=== PATIENT | male | born 1965 | race African-American/Black ===

== ENCOUNTER → 2016-11-20 | Outpatient (REF) | payer OTHER ==
[2016-11-20 12:28] LABS: ALBUMIN/GLOBULIN RATIO 1.18 (1.00-1.93); ALKALINE PHOSPHATASE 101 U/L (45-117); ALT/SGPT 44 U/L (12-78); ANION GAP 12 MEQ/L (8-16); AST/SGOT 44 U/L (15-37); BILIRUBIN,TOTAL 0.6 MG/DL (0.2-1.0); BLOOD UREA NITROGEN 10 MG/DL (7-18); CARBON DIOXIDE LEVEL 23 MEQ/L (21-32); CHLORIDE LEVEL 108 MEQ/L (98-107); CHOLESTEROL LEVEL 235 MG/DL (<200); CREATININE FOR GFR 0.71 MG/DL (0.70-1.30); GLOMERULAR FILTRATION RATE > 60.0 (>60); GLUCOSE, FASTING 74 MG/DL (70-105); SODIUM LEVEL 143 MEQ/L (136-145); TOTAL PROTEIN 7.4 GM/DL (6.4-8.2); TRIGLYCERIDES LEVEL 79 MG/DL (<150)
== END ==
LOC: M LABDRAW1 11:26
PROVIDERS: ATTEND Internal Medicine Infectious Disease
DX: B20 Human immunodeficiency virus [HIV] disease (principal); E55.9 Vitamin D deficiency, unspecified; E78.2 Mixed hyperlipidemia

== ENCOUNTER → 2016-12-22 | Outpatient (CLI) | payer OTHER ==
--- NOTE | 2016-12-22 12:02 | REP ---
Prostate sonography: History: Elevated PSA. Sonographic findings: Trans rectal prostate sonography demonstrates unremarkable seminal vesicles. Prostate gland is heterogeneously enlarged with calcifications and cystic changes noted. Glandular dimensions are measured at 4.1 x 2.2 x 4.4 cm with a calculated glandular volume of 21.1 ml. Transrectal sonographic guidance provided to Dr. Romano who performed trans rectal ultrasound guided needle biopsy procedure . Signed by Bo Burks MD 12/22/2016 11:53 A
== END ==
LOC: M SMT PRO 08:44
PROVIDERS: ATTEND Urology
DX: C61 Malignant neoplasm of prostate (principal); N41.8 Other inflammatory diseases of prostate
CPT/HCPCS: 55700; 76872; 76942; G0416

== ENCOUNTER → 2017-02-03 | Outpatient (REF) | payer OTHER ==
[2017-02-03 13:58] LABS: MEAN CORPUSCULAR HEMOGLOBIN 30.1 pg (27.0-33.0); MEAN CORPUSCULAR HGB CONC 34.2 g/dl (32.0-36.5); MEAN CORPUSCULAR VOLUME 87.9 fl (80.0-96.0); RED CELL DISTRIBUTION WIDTH 13.8 % (11.5-14.5); WHITE BLOOD COUNT 3.1 K/mm3 (4.0-10.0)
[2017-02-03 14:06] LABS: INR 0.93
[2017-02-03 14:30] LABS: ALBUMIN 4.2 GM/DL (3.2-5.2); ALBUMIN/GLOBULIN RATIO 1.24 (1.00-1.93); ALKALINE PHOSPHATASE 77 U/L (45-117); ALT/SGPT 34 U/L (12-78); ANION GAP 9 MEQ/L (8-16); AST/SGOT 31 U/L (15-37); BILIRUBIN,TOTAL 0.9 MG/DL (0.2-1.0); BLOOD UREA NITROGEN 10 MG/DL (7-18); CARBON DIOXIDE LEVEL 25 MEQ/L (21-32); CHLORIDE LEVEL 106 MEQ/L (98-107); CREATININE FOR GFR 0.74 MG/DL (0.70-1.30); GLOMERULAR FILTRATION RATE > 60.0 (>60); GLUCOSE, FASTING 77 MG/DL (70-105); POTASSIUM SERUM 3.8 MEQ/L (3.5-5.1); SODIUM LEVEL 140 MEQ/L (136-145); TOTAL PROTEIN 7.6 GM/DL (6.4-8.2)
== END ==
LOC: M LABDRAWP 12:45
PROVIDERS: ATTEND Urology
DX: Z01.818 Encounter for other preprocedural examination (principal); C61 Malignant neoplasm of prostate

== ENCOUNTER 2017-02-23 14:30 | Inpatient (IN) | payer OTHER ==
[~2017-02-23] VITALS: Ht 167.6 cm; Wt 61.2 kg
[2017-02-23] MEDS ORDERED: GENV1TAB PO (15:00)
[2017-02-23] MEDS ORDERED: LIPI20TA PO (15:00)
[2017-02-23] MEDS ORDERED: IBUP60TA PO (15:00)
[2017-02-23] MEDS ORDERED: CIPR500T19 PO (15:00)
[2017-02-23] MEDS ORDERED: ACYC400T PO (15:00)
[2017-02-23] MEDS ORDERED: ATEN100T PO (15:00)
[2017-02-23] MEDS ORDERED: THERTAB12 PO (15:00)
[2017-02-23] MEDS ORDERED: ATRIPLA PO (15:00)
[2017-02-23] MEDS ORDERED: NORV5TAB PO (15:00)
[2017-03-09] VITALS (8 sets, daily range): BP systolic 118–141; BP diastolic 72–89
[2017-03-09] MEDS ORDERED: LR 1,000 ML IV ONE (06:00)
[2017-03-09] MEDS ORDERED: LIDOCAINE 1% SDV INJ 30 ML VIAL As Ordered ONE (07:15)
[2017-03-09] MEDS ORDERED: BUPIVACAINE HCL 0.25% 30 ML VIAL As Ordered ONE (07:15)
[2017-03-09] MEDS ORDERED: ATENOLOL 50 MG TAB As Ordered ONE (07:16)
[2017-03-09] MEDS: HEPARIN SOD (PORCINE) 5000 UNITS/ML VIAL SC SCH ×3 (07:41→20:38)
[2017-03-09] MEDS ORDERED: HEPARIN SOD (PORCINE) 5000 UNITS/ML VIAL As Ordered ONE (07:59)
[2017-03-09] MEDS ORDERED: MIDAZOLAM INJ 2 MG/2 ML VIAL (J2250) As Ordered ONE (07:59)
[2017-03-09] MEDS ORDERED: fentaNYL 250 MCG/5 ML INJECTION (J3010) As Ordered ONE (07:59)
[2017-03-09] MEDS ORDERED: ACETAMINOPHEN TAB 650MG DOSE (2X325MG) PO PRN (08:00)
[2017-03-09] MEDS ORDERED: MORPHINE 2 MG/ML 1ML SYRINGE IV PRN (08:00)
[2017-03-09] MEDS ORDERED: ONDANSETRON 4MG/2ML VIAL (J2405) IV PRN ×2 (08:00→14:30)
[2017-03-09] MEDS ORDERED: PHENYLephrine HCL 500 MCG/5 ML (100MCG/ML) SYRINGE (J2370) As Ordered ONE ×2 (08:10→12:13)
[2017-03-09] MEDS ORDERED: METOCLOPRAMIDE INJ 10MG/2ML VIAL (J2765) As Ordered ONE (08:13)
[2017-03-09] MEDS ORDERED: LIDOCAINE 2% INJ 100 MG/5 ML SDV (FOR ANES.) As Ordered ONE (08:13)
[2017-03-09] MEDS ORDERED: ONDANSETRON 4MG/2ML VIAL (J2405) As Ordered ONE (08:13)
[2017-03-09] MEDS ORDERED: GLYCOPYRROLATE INJ 0.2 MG/ML 2 ML VIAL As Ordered ONE ×2 (08:13→08:14)
[2017-03-09] MEDS ORDERED: PROPOFOL 200 MG/20 ML VIAL As Ordered ONE (08:13)
[2017-03-09] MEDS ORDERED: NEOSTIGMINE 1MG/ML 5 ML SYRINGE (J2710) As Ordered ONE (08:14)
[2017-03-09] MEDS ORDERED: ROCURONIUM BROMIDE 50 MG/5 ML VIAL As Ordered ONE ×2 (08:14→11:00)
[2017-03-09] MEDS ORDERED: DESFLURANE 240 ML INHALANT As Ordered ONE (08:16)
[2017-03-09] MEDS ORDERED: HYDROmorphone HCL 2 MG/ML 1ML VIAL (J1170) As Ordered ONE (08:26)
[2017-03-09] MEDS: DOCUSATE SODIUM 100 MG CAP PO SCH ×2 (09:00→20:38)
[2017-03-09] MEDS ORDERED: ATENOLOL 50 MG TAB PO ONE (09:00)
[2017-03-09 13:31] LABS: MEAN CORPUSCULAR HEMOGLOBIN 30.4 pg (27.0-33.0); MEAN CORPUSCULAR HGB CONC 33.4 g/dl (32.0-36.5); MEAN CORPUSCULAR VOLUME 91.1 fl (80.0-96.0); RED CELL DISTRIBUTION WIDTH 13.5 % (11.5-14.5); WHITE BLOOD COUNT 10.3 K/mm3 (4.0-10.0)
--- NOTE | 2017-03-09 13:50 | ROOPDOC ---
[facility] Report Of Operation Report of Operation DATE OF PROCEDURE: 03/09/2017 PREPROCEDURE DIAGNOSIS: Prostate cancer. POSTPROCEDURE DIAGNOSIS: Prostate cancer. PROCEDURE: Robotic-assisted laparoscopic radical prostatectomy with bilateral pelvic lymph node dissection SURGEON: Helene Milton MD [place] MAN: Andree Leal NP ANESTHESIA: General. OPERATIVE INDICATIONS: This is a 51-year-old male who was diagnosed with clinical stage T1c Jaci 3+4 prostate cancer. After a discussion of the different options for treatment, he elected to undergo the above listed procedure. DESCRIPTION OF PROCEDURE: The patient was brought to the operating room where general anesthesia was induced. Prophylactic antibiotics were infused. He was then placed in the dorsal lithotomy position, and prepped and draped in the usual sterile fashion. Next, a Valles catheter was inserted into the bladder, and the balloon was filled with 10 mL of sterile water. We then made a midline incision above the umbilicus for 12 mm port. A Veress needle was utilized to achieve pneumoperitoneum. Next, a 12 mm port was inserted through the incision and subsequently the camera was inserted. There were no injuries from the Veress needle or initial trocar placement. The remaining ports were placed in the usual fashion under direct vision in a W configuration. There were three 8 mm robotic ports, as well as another 12 mm assistant professor of philosophy port. Once all the ports were placed, the robot was docked. After the robot was docked, we then proceeded to release any adhesions to the sigmoid colon and the abdominal wall. Once that was done, the bladder was dropped and the fat overlying the prostate was cleared using electrocautery. The superficial dorsal vein was controlled with electrocautery. The endopelvic fascia was opened on both sides and the dorsal venous complex was cleared. Next, a #0 Vicryl [id number] stitch was placed around the dorsal venous complex. Once that was done, the bladder was opened. We then began dissecting the bladder neck away from the prostate. I continued to dissect the bladder away from the prostate and then the prostate was lifted up. Both vasa differentia were identified in the midline. They were both carefully dissected and then ligated with Weck clips and then transected. Both seminal vesicles were then also dissected until the entire seminal vesicle on each side was lifted up. At this point I carefully dissected off the neurovascular bundle on the left side with cold scissors. I did not perform a nerve-sparing procedure on the right side as all of the patient's cancer was on the right based on his biopsy. Once the left neurovascular bundle was cleared, bilateral prostatic pedicles were carefully ligated using a Harmonic scalpel. Bilateral pedicles were carried towards the apex. After taking care of the pedicles and mobilizing the rectum off the prostate below, the prostate was only connected by the urethra. At this point, the dorsal vein was transected with electrocautery. The urethra was then opened and the catheter was withdrawn and the posterior urethra was transected, thus freeing the prostate. At this point , we checked for hemostasis and it did appear very good. Next, I performed bilateral pelvic lymph node dissection. This was done in standard fashion. The limits of the dissection were the external iliac veins proximally, the obturator nerve distally, the pelvic sidewall laterally, and the bladder medially. All lymphatic tissue within these borders was removed. I performed the same procedure on both the right and the left sides. Hemostasis was then obtained with a combination of monopolar, electrocautery and Weck clips. Lymphatic packets were then placed in separate Endo Catch bags for future retrieval. Once hemostasis was confirmed, I then moved on to the vesicourethral anastomosis. This was performed with a Quill stitch in a running fashion. Once this was done, the final #20-Congolese Valles catheter was placed. Once the final Valles was placed, the balloon was filled with 15 mL of sterile water. Upon completion of the vesicourethral anastomosis, it was tested by filling the bladder with 120 mL of sterile water. There was no leak, indicating a watertight closure. At this point, the prostate and seminal vesicles were placed in an Endo Catch bag for future retrieval. The robot was then undocked. A Vianey fascial closure device was utilized to place a #0 Vicryl suture through the fascia of the 12 mm assistant professor of philosophy port. At this point, a Donovan- Dutton (SARKIS) drain was brought in through the left robotic port skin site and the drain was positioned anterior to the bladder. The drain was secured to the skin with #3-0 Ethilon suture. Next, all the remaining ports were removed and there did not appear to be any bleeding from any of the port sites. The prostate was then extracted from the 12 mm camera port site after the skin and fascia were extended. The fascia in this area was then closed with a running #0 Vicryl stitch. The previously placed #0 Vicryl free ties through the assistant professor of philosophy port were then tied down and all incisions were irrigated. Lastly, all of the incisions were closed with running subcuticular #4-0 Monocryl sutures. Local anesthesia was applied. Dermabond was then applied to the incisions. This marked the conclusion of the procedure. The patient was then taken out of the dorsal lithotomy position, awakened from anesthesia and transported to the recovery room in stable condition. ESTIMATED BLOOD LOSS: 75 mL. COMPLICATIONS: None. SPECIMENS: Prostate, Right Pelvic Lymph Nodes, Left Pelvic Lymph Nodes. PLAN: The patient will be admitted to the hospital postoperatively, and he will likely be discharged home within the next 1-2 days. His catheter will be kept in place for at 7-10 days and then removed. HELENE MILTON MD March 09, 2017 13:50
[2017-03-09 14:06] LABS: ANION GAP 8 MEQ/L (8-16); BLOOD UREA NITROGEN 12 MG/DL (7-18); CALCIUM LEVEL 8.2 MG/DL (8.5-10.1); CARBON DIOXIDE LEVEL 24 MEQ/L (21-32); CHLORIDE LEVEL 108 MEQ/L (98-107); CREATININE FOR GFR 0.88 MG/DL (0.70-1.30); GLOMERULAR FILTRATION RATE > 60.0 (>60); GLUCOSE, FASTING 103 MG/DL (70-105); POTASSIUM SERUM 4.4 MEQ/L (3.5-5.1); SODIUM LEVEL 140 MEQ/L (136-145)
[2017-03-09] MEDS ORDERED: fentaNYL 100 MCG/2 ML INJECTION (J3010) IV PRN (14:30)
[2017-03-09] MEDS ORDERED: PERCOCET 5MG/325MG TAB PO PRN (14:30)
[2017-03-09] MEDS ORDERED: LR 1,000 ML IV SCH (14:30)
[2017-03-09] MEDS ORDERED: HYDROmorphone HCL 1 MG/ML SYRINGE (J1170) IV PRN (14:30)
[2017-03-09] MEDS: ceFAZolin SOD 1 GM in D5W MINI-BAG PLUS 50 ML IV SCH ×2 (15:19→23:37)
[2017-03-09] MEDS: NS 1,000 ML IV SCH ×3 (15:19→23:37)
[2017-03-09] MEDS: PERCOCET 5MG/325MG TAB PO PRN (20:52)
[2017-03-09] MEDS ORDERED: ATRIPLA TAB PO SCH (21:00)
[2017-03-10] MEDS: PERCOCET 5MG/325MG TAB PO PRN ×2 (01:00→05:34)
[2017-03-10 04:00] VITALS: BP 128/81
[2017-03-10] MEDS: HEPARIN SOD (PORCINE) 5000 UNITS/ML VIAL SC SCH (05:34)
[2017-03-10] MEDS ORDERED: CIPROFLOXACIN 500 MG TAB PO SCH (06:00)
[2017-03-10 06:51] LABS: MEAN CORPUSCULAR HEMOGLOBIN 31.3 pg (27.0-33.0); MEAN CORPUSCULAR HGB CONC 34.7 g/dl (32.0-36.5); MEAN CORPUSCULAR VOLUME 90.1 fl (80.0-96.0); RED CELL DISTRIBUTION WIDTH 13.3 % (11.5-14.5); WHITE BLOOD COUNT 6.7 K/mm3 (4.0-10.0)
[2017-03-10 07:09] LABS: ANION GAP 5 MEQ/L (8-16); BLOOD UREA NITROGEN 7 MG/DL (7-18); CALCIUM LEVEL 7.3 MG/DL (8.5-10.1); CARBON DIOXIDE LEVEL 26 MEQ/L (21-32); CHLORIDE LEVEL 112 MEQ/L (98-107); CREATININE FOR GFR 0.76 MG/DL (0.70-1.30); GLOMERULAR FILTRATION RATE > 60.0 (>60); GLUCOSE, FASTING 95 MG/DL (70-105); POTASSIUM SERUM 3.6 MEQ/L (3.5-5.1); SODIUM LEVEL 143 MEQ/L (136-145)
[2017-03-10] MEDS ORDERED: PERCOCET 5MG/325MG TAB PO PRN ×2 (07:45)
[2017-03-10 08:00] VITALS: BP 138/69
[2017-03-10] MEDS ORDERED: MORPHINE 2 MG/ML 1ML SYRINGE IV PRN (08:00)
--- NOTE | 2017-03-10 08:19 | IPNPDOC ---
Assessment/Plan Date Seen The patient was seen on 03/10/17. Patient Summary This is a 51 y/o M POD1 s/p robotic-assisted laparoscopic radical prostatectomy w/ bilateral pelvic lymph node dissection. He is doing well this am. Plan/VTE VTE Prophylaxis Ordered?: Yes VTE Exclusion Mechanical Proph: N/A:VTE Prophy Ordered VTE Exclusion Pharmacological: N/A:VTE Prophy Ordered Plan/Urinary Catheter Urinary Catheter: Other Catheter: (keep catheter in place for healing of vesicourethral anastomosis) Plan - percocet prn pain w/ morphing for breakthrough pain - d/c IVF - continue home meds - SCDs, SQH for DVT prophylaxis - ambulate - incentive spirometry - cipro daily while catheter is in - strict I/Os - advance diet as tolerated - likely discharge home later today w/ catheter in place (will d/c SARKIS drain prior to discharge) Subjective Review oF Systems Chief Complaint The patient is a 51-year-old male admitted with a reason for visit of Prostate Cancer. Events since Last Encounter No acute events o/n. Patient notes good pain control. No n/v. No f/c/ns. Objective Physical Examination General Exam: Alert, Cooperative, No Acute Distress ENT EXAM: Atraumatic ABDOMEN EXAM: Soft, Tenderness (appropriately tender), Other (incisions clean/ dry/intact; SARKIS draining serosanguinous output) Skin Exam: Nl turgor and temperature Neuro Exam: Normal Speech Psych Exam: Mental status NL, Mood NL Other physical findings catheter draining clear urine Vital Signs/I&O Vital Signs Date Time Temp Pulse Resp B/P (MAP) Pulse Ox O2 Delivery O2 Flow Rate FiO2 03/10/17 06:22 16 03/10/17 04:00 Room Air 03/10/17 04:00 100.1 71 128/81 (97) 97 03/09/17 13:26 2 I&O- Last 24 Hours up to 6 AM 03/10/17 05:59 Intake Total 6135 ml Output Total 3095 ml Balance 3040 ml Laboratory Data Labs 24H Laboratory Tests 2 03/09/17 13:18: Anion Gap 8, Glomerular Filtration Rate > 60.0, Blood Urea Nitrogen 12, Creatinine 0.88, Sodium Level 140, Potassium Level 4.4, Chloride Level 108H, Carbon Dioxide Level 24, Calcium Level 8.2L 03/09/17 15:45: 03/10/17 06:27: Anion Gap 5L, Glomerular Filtration Rate > 60.0, Blood Urea Nitrogen 7, Creatinine 0.76, Sodium Level 143, Potassium Level 3.6, Chloride Level 112H, Carbon Dioxide Level 26, Calcium Level 7.3L CBC/BMP Laboratory Tests 03/09/17 13:18 Red Blood Count 4.65, Mean Corpuscular Volume 91.1, Mean Corpuscular Hemoglobin 30.4, Mean Corpuscular Hemoglobin Concent 33.4, Red Cell Distribution Width 13.5 , Calcium Level 8.2 L 03/10/17 06:27 Red Blood Count 3.99 L, Mean Corpuscular Volume 90.1, Mean Corpuscular Hemoglobin 31.3, Mean Corpuscular Hemoglobin Concent 34.7, Red Cell Distribution Width 13.3, Calcium Level 7.3 L HELENE MILTON MD March 10, 2017 08:19
[2017-03-10] MEDS ORDERED: ACYCLOVIR 200 MG CAPSULE PO SCH (09:00)
[2017-03-10] MEDS ORDERED: ATENOLOL 50 MG TAB PO SCH (09:00)
[2017-03-10] MEDS ORDERED: amLODIPine 5 MG TAB PO SCH (09:00)
[2017-03-10] MEDS: DOCUSATE SODIUM 100 MG CAP PO SCH (09:19)
[2017-03-10 09:21] VITALS: BP 138/69
[2017-03-10 12:00] VITALS: BP 116/75
[2017-03-10] MEDS ORDERED: ACET650T2 PO (13:22)
[2017-03-10] MEDS ORDERED: CIPR500T89 PO (13:22)
[2017-03-10] MEDS ORDERED: OXYC1TAB23 PO (13:22)
[2017-03-10] MEDS ORDERED: COLA100C3 PO (13:22)
--- NOTE | 2017-03-11 06:16 | DSES ---
DATE OF ADMISSION: 03/09/2017 DATE OF DISCHARGE:03/10/2017 ADMISSION DIAGNOSIS: Prostate cancer. DISCHARGE DIAGNOSIS: Prostate cancer. ADMISSION PHYSICIAN: Arnie Romano MD. DISCHARGE PHYSICIAN: Arnie Romano MD PROCEDURES PERFORMED: Robotic-assisted laparoscopic radical prostatectomy, bilateral pelvic lymph node dissection on . HISTORY OF PRESENT ILLNESS: This is a 51-year-old male was recently found to have prostate cancer. Options for treatment were discussed and he elected to undergo the above procedure. He was admitted to the hospital postoperatively. HOSPITAL COURSE: The patient was admitted to the hospital after undergoing the above listed procedure. His postoperative course was unremarkable. On postoperative day one his labs were within normal limits and he is making excellent urine output. His pain was very well controlled and he ambulated with no difficulty. He was tolerating a regular diet. Output from his Donovan-Dutton (SARKIS) drain was minimal and therefore the drain was removed. Since he was doing so well on postoperative day one he was deemed ready for discharge. He was therefore discharged home on postoperative day one in good condition with his catheter in place. He will followup in the clinic next week for catheter removal. I will discuss his pathology at a subsequent visit in our office. KELSIE
== END 2017-03-10 15:35 | disposition home or self-care (01) | DRG 707 ==
LOC: M OR 03-09 06:12 → M MS5PR 03-09 14:10 → M PED 03-09 21:35
PROVIDERS: ADMIT Urology; ATTEND Urology
PROC: 07TC4ZZ Resection of Pelvis Lymphatic, Percutaneous Endoscopic Approach (ICD-10-PCS; 2017-03-09)
PROC: 8E0W4CZ Robotic Assisted Procedure of Trunk Region, Percutaneous Endoscopic Approach (ICD-10-PCS; 2017-03-09)
PROC: 0VT04ZZ Resection of Prostate, Percutaneous Endoscopic Approach (ICD-10-PCS; principal; 2017-03-09 07:30)
DX: C61 Malignant neoplasm of prostate (principal); B20 Human immunodeficiency virus [HIV] disease; I10 Essential (primary) hypertension; Z79.899 Other long term (current) drug therapy; E78.2 Mixed hyperlipidemia; M54.5 Low back pain

== ENCOUNTER → 2017-05-07 | Outpatient (CLI) | payer OTHER ==
[~2017-05-07] MED LIST: ACET650T3 PO; ACYC400T PO; ATEN100T PO; ATRIPLA PO; CIPR-249 PO; CIPR500T19 PO; COLA100C5 PO; GENV1TAB PO; IBUP1TAB6 PO; LIPI20TA PO; NORV5TAB PO; OXYC1TAB23 PO; THERTAB12 PO
== END ==
LOC: M SMT 09:23
PROVIDERS: ATTEND Urology
DX: C61 Malignant neoplasm of prostate (principal)

== ENCOUNTER → 2017-11-25 | Outpatient (REF) | payer OTHER ==
[2017-11-25 14:58] LABS: APPEARANCE, URINE CLEAR (CLEAR); BACTERIA, URINE AUTO NEGATIVE (NEGATIVE); BILIRUBIN, URINE AUTO NEGATIVE (NEGATIVE); BLOOD, URINE BLOOD NEGATIVE (NEGATIVE); COLOR, URINE YELLOW (YELLOW); GLUCOSE, URINE (UA) AUTO NEGATIVE (NEGATIVE); KETONE, URINE AUTO NEGATIVE (NEGATIVE); LEUKOCYTE ESTERASE, URINE AUTO NEGATIVE (NEGATIVE); MUCUS, URINE SMALL (NEGATIVE); NITRITE, URINE AUTO NEGATIVE (NEGATIVE); PROTEIN, URINE AUTO NEGATIVE (NEGATIVE); RBC, URINE AUTO 0 /HPF (0-3); SPECIFIC GRAVITY URINE AUTO 1.012 (1.002-1.035); SQUAMOUS EPITHELIAL CELL UR AU 0 /HPF (0-6); UROBILINOGEN, URINE AUTO 0.2 mg/dL (0.0-2.0); WBC, URINE AUTO 0 /HPF (0-3)
[2017-11-25 15:43] LABS: PROSTATIC SPECIFIC AG MONITOR < 0.01 NG/ML (< 4.0)
[2017-11-25 15:54] LABS: ALBUMIN 4.1 GM/DL (3.2-5.2); ALBUMIN/GLOBULIN RATIO 1.14 (1.00-1.93); ALKALINE PHOSPHATASE 72 U/L (45-117); ALT/SGPT 24 U/L (12-78); ANION GAP 9 MEQ/L (8-16); AST/SGOT 25 U/L (7-37); BILIRUBIN,TOTAL 0.6 MG/DL (0.2-1.0); BLOOD UREA NITROGEN 9 MG/DL (7-18); CALCIUM LEVEL 9.2 MG/DL (8.5-10.1); CARBON DIOXIDE LEVEL 28 MEQ/L (21-32); CHLORIDE LEVEL 106 MEQ/L (98-107); CHOLESTEROL LEVEL 261 MG/DL (<200); CHOLESTEROL RISK RATIO 2.394 (<5); CREATININE FOR GFR 0.93 MG/DL (0.70-1.30); GLOMERULAR FILTRATION RATE > 60.0 (>56); GLUCOSE, FASTING 82 MG/DL (70-100); HDL CHOLESTEROL 109 MG/DL (>40); LDL CHOLESTEROL 134.8 MG/DL (<100); NON-HDL-C 152 MG/DL; SODIUM LEVEL 143 MEQ/L (136-145); TOTAL PROTEIN 7.7 GM/DL (6.4-8.2); TRIGLYCERIDES LEVEL 86 MG/DL (<150)
[2017-11-25 16:24] LABS: CHLAMYDIA DNA AMPLIFICATION NEGATIVE (NEGATIVE); GC DNA AMPLIFICATION NEGATIVE (NEGATIVE)
[2017-11-27 00:08] LABS: % CD8 Pos Lymph 32.7 % (12.0-35.5); %CD4 Pos Lymphs 31.6 % (30.8-58.5); ABS Lymphs 0.7 x10E3/uL (0.7-3.1); ABS Monocytes 0.2 x10E3/uL (0.1-0.9); ABS Neutophils 1.6 x10E3/uL (1.4-7.0); Abs CD4 Helper 221 /uL (359-1519); Abs CD8 Suppres 229 /uL (109-897); CD4/CD8 Ratio 0.97 (0.92-3.72); Eosinophils 1 % (Not Estab.); HCT 45.3 % (37.5-51.0); HGB 15.4 g/dL (13.0-17.7); Immature Grans 0 % (Not Estab.); Lymphocytes 27 % (Not Estab.); MCH 29.7 pg (26.6-33.0); MCV 87 fL (79-97); Monocytes 9 % (Not Estab.); Neutrophils 62 % (Not Estab.); Platelets 274 x10E3/uL (150-379); RBC 5.19 x10E6/uL (4.14-5.80); RDW 14.5 % (12.3-15.4); WBC 2.6 x10E3/uL (3.4-10.8)
[2017-11-27 15:10] LABS: QUANTIFERON GOLD TB Negative (Negative); TB Test (QFT) Antigen 0.02 IU/mL (.); TB Test (QFT) Antigen Minus Ni <0.01 IU/mL (.); TB Test (QFT) Nil 0.03 IU/mL (.)
[2017-11-29 14:12] LABS: HIV-1 RNA PCR QUANT 2 LC550285 <20 copies/mL (.)
== END ==
LOC: M SFHCPLAZ 09:00
DX: B20 Human immunodeficiency virus [HIV] disease (principal); E78.2 Mixed hyperlipidemia
CPT/HCPCS: 84153

== ENCOUNTER → 2018-11-15 | Outpatient (REF) | payer OTHER ==
[2018-11-15 13:33] LABS: APPEARANCE, URINE CLEAR (CLEAR); BACTERIA, URINE AUTO NEGATIVE (NEGATIVE); BILIRUBIN, URINE AUTO NEGATIVE (NEGATIVE); BLOOD, URINE BLOOD NEGATIVE (NEGATIVE); COLOR, URINE YELLOW (YELLOW); GLUCOSE, URINE (UA) AUTO NEGATIVE (NEGATIVE); KETONE, URINE AUTO NEGATIVE (NEGATIVE); LEUKOCYTE ESTERASE, URINE AUTO NEGATIVE (NEGATIVE); MUCUS, URINE SMALL (NEGATIVE); NITRITE, URINE AUTO NEGATIVE (NEGATIVE); PROTEIN, URINE AUTO 1+ mg/dL (NEGATIVE); RBC, URINE AUTO 1 /HPF (0-3); SPECIFIC GRAVITY URINE AUTO 1.018 (1.002-1.035); SQUAMOUS EPITHELIAL CELL UR AU 0 /HPF (0-6); UROBILINOGEN, URINE AUTO 0.2 mg/dL (0.0-2.0); WBC, URINE AUTO 0 /HPF (0-3)
[2018-11-15 13:41] LABS: ALBUMIN 4.5 GM/DL (3.2-5.2); ALT/SGPT 28 U/L (12-78); BLOOD UREA NITROGEN 13 MG/DL (7-18); CALCIUM LEVEL 8.9 MG/DL (8.5-10.1); CARBON DIOXIDE LEVEL 26 MEQ/L (21-32); CHLORIDE LEVEL 105 MEQ/L (98-107); CHOLESTEROL LEVEL 269 MG/DL (<200); CHOLESTEROL RISK RATIO 2.744 (<5); CREATININE FOR GFR 0.94 MG/DL (0.70-1.30); GLOMERULAR FILTRATION RATE > 60.0 (>56); GLUCOSE, FASTING 84 MG/DL (70-100); HDL CHOLESTEROL 98 MG/DL (>40); LDL CHOLESTEROL 131 MG/DL (<100); NON-HDL-C 171 MG/DL; PROSTATIC SPECIFIC AG MONITOR < 0.01 NG/ML (< 4.00); SODIUM LEVEL 141 MEQ/L (136-145); TOTAL PROTEIN 8.3 GM/DL (6.4-8.2); TRIGLYCERIDES LEVEL 199 MG/DL (<150)
[2018-11-15 13:44] LABS: TOTAL 25(OH) VITAMIN D 20.8 NG/ML (30.0-100.0)
[2018-11-15 15:27] LABS: CHLAMYDIA DNA AMPLIFICATION NEGATIVE (NEGATIVE); GC DNA AMPLIFICATION NEGATIVE (NEGATIVE)
[2018-11-17 14:44] LABS: % CD8 Pos Lymph 35.4 % (12.0-35.5); %CD4 Pos Lymphs 24.5 % (30.8-58.5); ABS Lymphs 1.2 x10E3/uL (0.7-3.1); ABS Monocytes 0.3 x10E3/uL (0.1-0.9); ABS Neutophils 2.2 x10E3/uL (1.4-7.0); Abs CD4 Helper 294 /uL (359-1519); Abs CD8 Suppres 425 /uL (109-897); CD4/CD8 Ratio 0.69 (0.92-3.72); Eosinophils 1 % (Not Estab.); HCT 45.8 % (37.5-51.0); HGB 16.2 g/dL (13.0-17.7); HIV-1 RNA PCR QUANT 2 LC550285 100 copies/mL (.); Immature Grans 0 % (Not Estab.); Lymphocytes 31 % (Not Estab.); MCH 29.2 pg (26.6-33.0); MCHC 35.4 g/dL (31.5-35.7); MCV 83 fL (79-97); Monocytes 9 % (Not Estab.); Neutrophils 58 % (Not Estab.); Platelets 275 x10E3/uL (150-379); RBC 5.54 x10E6/uL (4.14-5.80); RDW 14.6 % (12.3-15.4); WBC 3.8 x10E3/uL (3.4-10.8)
== END ==
LOC: M SFHCPLAZ 09:57
PROVIDERS: ATTEND Internal Medicine Infectious Disease
DX: B20 Human immunodeficiency virus [HIV] disease (principal); E78.2 Mixed hyperlipidemia; E55.9 Vitamin D deficiency, unspecified; C61 Malignant neoplasm of prostate

== ENCOUNTER → 2019-06-01 | Outpatient (REF) | payer OTHER ==
[~2019-06-01] MED LIST changes: +BIKT1TAB PO; +VITA500045 PO
[2019-06-01 10:39] LABS: APPEARANCE, URINE CLEAR (CLEAR); BACTERIA, URINE AUTO NEGATIVE (NEGATIVE); BILIRUBIN, URINE AUTO NEGATIVE (NEGATIVE); BLOOD, URINE BLOOD NEGATIVE (NEGATIVE); COLOR, URINE YELLOW (YELLOW); GLUCOSE, URINE (UA) AUTO NEGATIVE (NEGATIVE); KETONE, URINE AUTO TRACE mg/dL (NEGATIVE); LEUKOCYTE ESTERASE, URINE AUTO NEGATIVE (NEGATIVE); MUCUS, URINE SMALL (NEGATIVE); NITRITE, URINE AUTO NEGATIVE (NEGATIVE); PROTEIN, URINE AUTO NEGATIVE (NEGATIVE); RBC, URINE AUTO 2 /HPF (0-3); SPECIFIC GRAVITY URINE AUTO 1.016 (1.002-1.035); SQUAMOUS EPITHELIAL CELL UR AU 0 /HPF (0-6); UROBILINOGEN, URINE AUTO 0.2 mg/dL (0.0-2.0); WBC, URINE AUTO 1 /HPF (0-3)
[2019-06-01 11:00] LABS: ALBUMIN 4.7 GM/DL (3.2-5.2); ALT/SGPT 36 U/L (12-78); BILIRUBIN,TOTAL 0.7 MG/DL (0.2-1.0); BLOOD UREA NITROGEN 15 MG/DL (7-18); CALCIUM LEVEL 9.7 MG/DL (8.5-10.1); CARBON DIOXIDE LEVEL 31 MEQ/L (21-32); CHLORIDE LEVEL 107 MEQ/L (98-107); CHOLESTEROL LEVEL 229 MG/DL (<200); CHOLESTEROL RISK RATIO 2.436 (<5); CREATININE FOR GFR 0.87 MG/DL (0.70-1.30); GLOMERULAR FILTRATION RATE > 60.0 (>56); GLUCOSE, FASTING 78 MG/DL (70-100); HDL CHOLESTEROL 94 MG/DL (>40); LDL CHOLESTEROL 88 MG/DL (<100); NON-HDL-C 135 MG/DL; POTASSIUM SERUM 3.7 MEQ/L (3.5-5.1); SODIUM LEVEL 142 MEQ/L (136-145); TRIGLYCERIDES LEVEL 233 MG/DL (<150)
[2019-06-01 11:08] LABS: TOTAL 25(OH) VITAMIN D 34.9 NG/ML (30.0-100.0)
[2019-06-01 14:28] LABS: CHLAMYDIA DNA AMPLIFICATION NEGATIVE (NEGATIVE); GC DNA AMPLIFICATION NEGATIVE (NEGATIVE)
[2019-06-05 14:06] LABS: % CD8 Pos Lymph 33.5 % (12.0-35.5); %CD4 Pos Lymphs 27.1 % (30.8-58.5); ABS Eosinophils 0.1 x10E3/uL (0.0-0.4); ABS Lymphs 1.2 x10E3/uL (0.7-3.1); ABS Monocytes 0.4 x10E3/uL (0.1-0.9); ABS Neutophils 3.6 x10E3/uL (1.4-7.0); Abs CD4 Helper 325 /uL (359-1519); Abs CD8 Suppres 402 /uL (109-897); CD4/CD8 Ratio 0.81 (0.92-3.72); Eosinophils 1 % (Not Estab.); HCT 47.3 % (37.5-51.0); HIV-1 RNA PCR QUANT 2 LC550285 <20 copies/mL (.); Immature Grans 0 % (Not Estab.); Lymphocytes 23 % (Not Estab.); MCHC 33.8 g/dL (31.5-35.7); MCV 86 fL (79-97); Monocytes 8 % (Not Estab.); Neutrophils 67 % (Not Estab.); Platelets 304 x10E3/uL (150-450); RBC 5.51 x10E6/uL (4.14-5.80); RDW 14.6 % (12.3-15.4); RPR Non Reactive (Non Reactive); WBC 5.3 x10E3/uL (3.4-10.8)
== END ==
LOC: M SFHCPLAZ 08:31
PROVIDERS: ATTEND Internal Medicine Infectious Disease
DX: B20 Human immunodeficiency virus [HIV] disease (principal); E78.2 Mixed hyperlipidemia; E55.9 Vitamin D deficiency, unspecified; I10 Essential (primary) hypertension

== ENCOUNTER 2019-06-06 06:43 | Day surgery (SDC) | payer OTHER ==
[~2019-06-06] VITALS: Ht 167.6 cm; Wt 61.7 kg
[~2019-06-06 06:43] MED LIST changes: +NS 1,000 ML IV ONE
[2019-06-06] MEDS ORDERED: PROPOFOL 200 MG/20 ML VIAL As Ordered ONE (07:08)
--- NOTE | 2019-06-06 08:31 | ROOR ---
Patient Name: Subhash Reyes Procedure Date: 06/06/2019 8:03 AM Date of : 1965 Age: 53 Room: [facility] Gender: Male Note Status: Finalized Procedure: Colonoscopy Indications: Screening for colorectal malignant neoplasm Providers: José Luis BRYANT MD Referring MD: Trevor SAAVEDRA MD. Requesting Provider: Medicines: Monitored Anesthesia Care Complications: No immediate complications. Procedure: Pre-Anesthesia Assessment: - The heart rate, respiratory rate, oxygen saturations, blood pressure, adequacy of pulmonary ventilation, and response to care were monitored throughout the procedure. The Colonoscope was introduced through the anus and advanced to the terminal ileum, with identification of the appendiceal orifice and IC valve. The colonoscopy was performed without difficulty. The patient tolerated the procedure well. The quality of the bowel preparation was good. Findings: The perianal and digital rectal examinations were normal. Two sessile polyps were found in the cecum. The polyps were diminutive in size. These polyps were removed with a cold snare. Resection and retrieval were complete. A diminutive polyp was found in the sigmoid colon. The polyp was sessile. The polyp was removed with a cold snare. Resection and retrieval were complete. Three sessile polyps were found in the rectum (benign-appearing lesion). The polyps were 3 to 4 mm in size. These polyps were removed with a cold snare. Resection and retrieval were complete. Mild sigmoid diverticulosis and small internal hemorrhoids. The exam was otherwise without abnormality on direct and retroflexion views. Retroflexion in the right colon was performed. Impression: - Two diminutive polyps in the cecum, removed with a cold snare. Resected and retrieved. - One diminutive polyp in the sigmoid colon, removed with a cold snare. Resected and retrieved. - Three benign appearing 3 to 4 mm polyps in the rectum, removed with a cold snare. Resected and retrieved. - Mild sigmoid diverticulosis and small internal hemorrhoids. - The examination was otherwise normal on direct and retroflexion views. Recommendation: - Await pathology results. - Telephone endoscopist for pathology results in 2 weeks. - If the pathology report reveals adenomatous tissue, then repeat the colonoscopy for surveillance in 3 - 5 years. - If the pathology report indicates hyperplastic polyp, then repeat colonoscopy for screening purposes in 10 years. José Luis Bryant MD José Luis BRYANT MD 06/06/2019 8:30:57 AM Electronically signed by José Luis BRYANT MD Number of Addenda: 0 Note Initiated On: 06/06/2019 8:03 AM Estimated Blood Loss: Estimated blood loss: none.
[2019-06-06 08:45] VITALS: BP 144/92
== END 2019-06-06 09:20 | disposition home or self-care (01) ==
LOC: M OPP 06:43
PROVIDERS: ATTEND Internal Medicine Gastroenterology
DX: Z12.11 Encounter for screening for malignant neoplasm of colon (principal); D12.0 Benign neoplasm of cecum; D12.5 Benign neoplasm of sigmoid colon; D12.8 Benign neoplasm of rectum; K57.30 Diverticulosis of large intestine without perforation or abscess without bleeding; K64.8 Other hemorrhoids; I10 Essential (primary) hypertension; B20 Human immunodeficiency virus [HIV] disease; E78.00 Pure hypercholesterolemia, unspecified; Z85.46 Personal history of malignant neoplasm of prostate; Z88.2 Allergy status to sulfonamides; Z88.8 Allergy status to other drugs, medicaments and biological substances; Z79.899 Other long term (current) drug therapy

== ENCOUNTER → 2020-11-14 | Outpatient (REF) | payer OTHER ==
[~2020-11-14] MED LIST changes: -NS 1,000 ML IV ONE
[2020-11-14 12:43] LABS: APPEARANCE, URINE HAZY (CLEAR); BACTERIA, URINE AUTO NEGATIVE (NEGATIVE); BILIRUBIN, URINE AUTO NEGATIVE (NEGATIVE); BLOOD, URINE BLOOD NEGATIVE (NEGATIVE); COLOR, URINE AMBER (YELLOW); GLUCOSE, URINE (UA) AUTO NEGATIVE (NEGATIVE); KETONE, URINE AUTO NEGATIVE (NEGATIVE); LEUKOCYTE ESTERASE, URINE AUTO NEGATIVE (NEGATIVE); MUCUS, URINE SMALL (NEGATIVE); NITRITE, URINE AUTO NEGATIVE (NEGATIVE); PROTEIN, URINE AUTO 2+ mg/dL (NEGATIVE); RBC, URINE AUTO 0 /HPF (0-3); SPECIFIC GRAVITY URINE AUTO 1.018 (1.002-1.035); SQUAMOUS EPITHELIAL CELL UR AU 0 /HPF (0-6); WBC, URINE AUTO 1 /HPF (0-3)
[2020-11-14 13:16] LABS: ALBUMIN 4.6 GM/DL (3.2-5.2); ALT/SGPT 37 U/L (12-78); BILIRUBIN,TOTAL 1.7 MG/DL (0.2-1.0); BLOOD UREA NITROGEN 13 MG/DL (7-18); CALCIUM LEVEL 9.6 MG/DL (8.5-10.1); CARBON DIOXIDE LEVEL 27 MEQ/L (21-32); CHLORIDE LEVEL 105 MEQ/L (98-107); CHOLESTEROL LEVEL 200 MG/DL (<200); CHOLESTEROL RISK RATIO 2.352 (<5); CREATININE FOR GFR 1.07 MG/DL (0.70-1.30); GLOMERULAR FILTRATION RATE > 60.0 (>56); GLUCOSE, FASTING 98 MG/DL (70-100); HDL CHOLESTEROL 85 MG/DL (>40); LDL CHOLESTEROL 51 MG/DL (<100); NON-HDL-C 115 MG/DL; POTASSIUM SERUM 3.7 MEQ/L (3.5-5.1); PROSTATIC SPECIFIC AG MONITOR 0.02 NG/ML (< 4.00); SODIUM LEVEL 143 MEQ/L (136-145); TOTAL PROTEIN 7.6 GM/DL (6.4-8.2); TRIGLYCERIDES LEVEL 318 MG/DL (<150)
[2020-11-14 13:23] LABS: TOTAL 25(OH) VITAMIN D 64.6 NG/ML (30.0-100.0)
[2020-11-14 14:18] LABS: CHLAMYDIA DNA AMPLIFICATION NEGATIVE (NEGATIVE); GC DNA AMPLIFICATION NEGATIVE (NEGATIVE)
[2020-11-18 13:07] LABS: %CD4 Pos Lymphs 33.1 % (30.8-58.5); ABS Lymphs 1.2 x10E3/uL (0.7-3.1); ABS Monocytes 0.4 x10E3/uL (0.1-0.9); ABS Neutophils 5.1 x10E3/uL (1.4-7.0); Abs CD4 Helper 397 /uL (359-1519); Abs CD8 Suppres 384 /uL (109-897); CD4/CD8 Ratio 1.03 (0.92-3.72); Eosinophils 0 % (Not Estab.); HCT 45.5 % (37.5-51.0); HGB 15.9 g/dL (13.0-17.7); HIV-1 RNA PCR QUANT 2 LC550285 <20 copies/mL (.); Immature Grans 0 % (Not Estab.); Lymphocytes 17 % (Not Estab.); MCH 30.1 pg (26.6-33.0); MCHC 34.9 g/dL (31.5-35.7); MCV 86 fL (79-97); Monocytes 5 % (Not Estab.); Neutrophils 78 % (Not Estab.); Platelets 330 x10E3/uL (150-450); RBC 5.28 x10E6/uL (4.14-5.80); RDW 14.1 % (11.6-15.4); WBC 6.7 x10E3/uL (3.4-10.8)
== END ==
LOC: M SFHCPLAZ 09:01
PROVIDERS: ATTEND Internal Medicine Infectious Disease
DX: B20 Human immunodeficiency virus [HIV] disease (principal); E78.2 Mixed hyperlipidemia; E55.9 Vitamin D deficiency, unspecified; I10 Essential (primary) hypertension; C61 Malignant neoplasm of prostate

== ENCOUNTER → 2021-08-21 | Outpatient (CLI) | payer OTHER ==
[~2021-08-21] MED LIST changes: +ACYC1TAB PO; -ACYC400T PO; +THEREMS-M1 TAB PO; -THERTAB12 PO
[2021-08-21 13:34] LABS: APPEARANCE, URINE HAZY (CLEAR); BACTERIA, URINE AUTO NEGATIVE (NEGATIVE); BILIRUBIN, URINE AUTO NEGATIVE (NEGATIVE); BLOOD, URINE BLOOD NEGATIVE (NEGATIVE); COLOR, URINE YELLOW (YELLOW); GLUCOSE, URINE (UA) AUTO NEGATIVE (NEGATIVE); KETONE, URINE AUTO NEGATIVE (NEGATIVE); LEUKOCYTE ESTERASE, URINE AUTO NEGATIVE (NEGATIVE); NITRITE, URINE AUTO NEGATIVE (NEGATIVE); PROTEIN, URINE AUTO NEGATIVE (NEGATIVE); RBC, URINE AUTO 0 /HPF (0-3); SPECIFIC GRAVITY URINE AUTO 1.013 (1.002-1.035); SQUAMOUS EPITHELIAL CELL UR AU 0 /HPF (0-6); UROBILINOGEN, URINE AUTO 0.2 mg/dL (0.0-2.0); WBC, URINE AUTO 1 /HPF (0-3)
[2021-08-21 14:06] LABS: ALBUMIN 4.8 GM/DL (3.2-5.2); ALT/SGPT 41 U/L (12-78); BLOOD UREA NITROGEN 15 MG/DL (7-18); CALCIUM LEVEL 10.1 MG/DL (8.5-10.1); CARBON DIOXIDE LEVEL 31 MEQ/L (21-32); CHLORIDE LEVEL 106 MEQ/L (98-107); CHOLESTEROL LEVEL 206 MG/DL (<200); CHOLESTEROL RISK RATIO 2.168 (<5); CREATININE FOR GFR 1.07 MG/DL (0.70-1.30); GLOMERULAR FILTRATION RATE > 60.0 (>56); GLUCOSE, FASTING 91 MG/DL (70-100); HDL CHOLESTEROL 95 MG/DL (>40); LDL CHOLESTEROL 90 MG/DL (<100); NON-HDL-C 111 MG/DL; POTASSIUM SERUM 4.4 MEQ/L (3.5-5.1); PROSTATIC SPECIFIC AG MONITOR 0.01 NG/ML (< 4.00); SODIUM LEVEL 139 MEQ/L (136-145); TOTAL PROTEIN 7.9 GM/DL (6.4-8.2); TRIGLYCERIDES LEVEL 105 MG/DL (<150)
[2021-08-21 14:10] LABS: TOTAL 25(OH) VITAMIN D 65.4 NG/ML (30.0-100.0)
[2021-08-21 16:39] LABS: GC DNA AMPLIFICATION NEGATIVE (NEGATIVE)
[2021-08-23 02:07] LABS: % CD8 Pos Lymph 33.7 % (12.0-35.5); ABS Lymphs 1.2 x10E3/uL (0.7-3.1); ABS Monocytes 0.4 x10E3/uL (0.1-0.9); ABS Neutophils 3.3 x10E3/uL (1.4-7.0); Abs CD4 Helper 336 /uL (359-1519); Abs CD8 Suppres 404 /uL (109-897); CD4/CD8 Ratio 0.83 (0.92-3.72); Eosinophils 1 % (Not Estab.); HCT 46.2 % (37.5-51.0); HGB 16.1 g/dL (13.0-17.7); HIV-1 RNA PCR QUANT 2 LC550285 30 copies/mL (.); HIV-1 RNA PCR QUANT 3 LC550285 1.477 (.); Immature Grans 0 % (Not Estab.); Lymphocytes 24 % (Not Estab.); MCH 28.7 pg (26.6-33.0); MCHC 34.8 g/dL (31.5-35.7); MCV 82 fL (79-97); Monocytes 7 % (Not Estab.); Neutrophils 67 % (Not Estab.); Platelets 345 x10E3/uL (150-450); RBC 5.61 x10E6/uL (4.14-5.80); RDW 13.6 % (11.6-15.4); WBC 4.9 x10E3/uL (3.4-10.8)
== END ==
LOC: M PLALAB 09:25
PROVIDERS: ATTEND Internal Medicine Infectious Disease
DX: C61 Malignant neoplasm of prostate (principal)

== ENCOUNTER → 2021-10-28 | Outpatient (CLI) | payer OTHER ==
--- NOTE | 2021-10-28 16:18 | REP ---
INDICATION: L 4TH FINGER INJURY, R/O FX. SINCE WE ONLY HAVE 4 FINGERS AND 1 THUMB OR 5 DIGITS TOTAL THE 3RD FINGER (4TH DIGIT) WAS IMAGED COMPARISON: None. TECHNIQUE: FOUR VIEWS OF THE 4TH DIGIT OF THE LEFT HAND FINDINGS: No acute fracture or destructive osseous lesion. IMPRESSION: No acute osseous abnormality as described above <Electronically signed by Mike Farmer > 10/28/21 [id number]
== END ==
LOC: M RAD 15:52
PROVIDERS: ATTEND Physician Assistant Medical
DX: S69.92XA Unspecified injury of left wrist, hand and finger(s), initial encounter (principal); X58.XXXA Exposure to other specified factors, initial encounter; Y92.9 Unspecified place or not applicable; Y93.9 Activity, unspecified; Y99.9 Unspecified external cause status

== ENCOUNTER → 2022-01-01 | Outpatient (CLI) | payer OTHER ==
[2022-01-01 14:18] LABS: ALBUMIN 4.2 GM/DL (3.2-5.2); ALT/SGPT 43 U/L (12-78); BILIRUBIN,TOTAL 0.7 MG/DL (0.2-1.0); BLOOD UREA NITROGEN 12 MG/DL (7-18); CALCIUM LEVEL 9.5 MG/DL (8.5-10.1); CARBON DIOXIDE LEVEL 29 MEQ/L (21-32); CHLORIDE LEVEL 109 MEQ/L (98-107); CHOLESTEROL LEVEL 203 MG/DL (<200); CHOLESTEROL RISK RATIO 2.388 (<5); CREATININE FOR GFR 0.92 MG/DL (0.70-1.30); GLOMERULAR FILTRATION RATE > 60.0 (>56); GLUCOSE, FASTING 93 MG/DL (70-100); HDL CHOLESTEROL 85 MG/DL (>40); LDL CHOLESTEROL 58 MG/DL (<100); NON-HDL-C 118 MG/DL; POTASSIUM SERUM 3.9 MEQ/L (3.5-5.1); SODIUM LEVEL 143 MEQ/L (136-145); TOTAL 25(OH) VITAMIN D 62.7 NG/ML (30.0-100.0); TOTAL PROTEIN 7.5 GM/DL (6.4-8.2); TRIGLYCERIDES LEVEL 300 MG/DL (<150)
== END ==
LOC: M PLALAB 09:27
PROVIDERS: ATTEND Nurse Practitioner Family
DX: E78.2 Mixed hyperlipidemia (principal); E55.9 Vitamin D deficiency, unspecified; C61 Malignant neoplasm of prostate

== ENCOUNTER → 2022-01-01 | Outpatient (CLI) | payer OTHER ==
[2022-01-01 13:44] LABS: APPEARANCE, URINE HAZY (CLEAR); BACTERIA, URINE AUTO 1+ (NEGATIVE); BILIRUBIN, URINE AUTO NEGATIVE (NEGATIVE); BLOOD, URINE BLOOD NEGATIVE (NEGATIVE); CALCIUM OXALATE CRYSTALS SMALL; COLOR, URINE AMBER (YELLOW); GLUCOSE, URINE (UA) AUTO 1+ mg/dL (NEGATIVE); KETONE, URINE AUTO TRACE mg/dL (NEGATIVE); LEUKOCYTE ESTERASE, URINE AUTO NEGATIVE (NEGATIVE); MUCUS, URINE SMALL (NEGATIVE); NITRITE, URINE AUTO NEGATIVE (NEGATIVE); PROTEIN, URINE AUTO 1+ mg/dL (NEGATIVE); RBC, URINE AUTO 0 /HPF (0-3); SPECIFIC GRAVITY URINE AUTO 1.018 (1.002-1.035); SQUAMOUS EPITHELIAL CELL UR AU 0 /HPF (0-6); WBC, URINE AUTO 0 /HPF (0-3)
[2022-01-01 15:11] LABS: GC DNA AMPLIFICATION NEGATIVE (NEGATIVE)
== END ==
LOC: M PLALAB 09:30
PROVIDERS: ATTEND Internal Medicine Infectious Disease
DX: B20 Human immunodeficiency virus [HIV] disease (principal); I10 Essential (primary) hypertension

== ENCOUNTER → 2022-07-06 | Outpatient (CLI) | payer OTHER ==
[2022-07-06 17:00] LABS: ALT/SGPT 35 U/L (12-78); BLOOD UREA NITROGEN 16 MG/DL (7-18); CALCIUM LEVEL 9.2 MG/DL (8.5-10.1); CARBON DIOXIDE LEVEL 28 MEQ/L (21-32); CHLORIDE LEVEL 110 MEQ/L (98-107); CHOLESTEROL LEVEL 228 MG/DL (<200); CHOLESTEROL RISK RATIO 2.923 (<5); GLOMERULAR FILTRATION RATE > 60.0 (>56); GLUCOSE, FASTING 79 MG/DL (70-100); HDL CHOLESTEROL 78 MG/DL (>40); LDL CHOLESTEROL 122 MG/DL (<100); NON-HDL-C 150 MG/DL; POTASSIUM SERUM 4.1 MEQ/L (3.5-5.1); PROSTATIC SPECIFIC AG MONITOR 0.02 NG/ML (< 4.00); SODIUM LEVEL 142 MEQ/L (136-145); TOTAL PROTEIN 7.2 GM/DL (6.4-8.2); TRIGLYCERIDES LEVEL 141 MG/DL (<150)
[2022-07-06 20:05] LABS: GC DNA AMPLIFICATION NEGATIVE (NEGATIVE)
[2022-07-08 16:08] LABS: % CD8 Pos Lymph 30.3 % (12.0-35.5); %CD4 Pos Lymphs 33.8 % (30.8-58.5); ABS Eosinophils 0.1 x10E3/uL (0.0-0.4); ABS Lymphs 1.1 x10E3/uL (0.7-3.1); ABS Monocytes 0.5 x10E3/uL (0.1-0.9); ABS Neutophils 2.8 x10E3/uL (1.4-7.0); Abs CD4 Helper 372 /uL (359-1519); Abs CD8 Suppres 333 /uL (109-897); CD4/CD8 Ratio 1.12 (0.92-3.72); Eosinophils 2 % (Not Estab.); HIV-1 RNA PCR QUANT 2 LC550285 <20 copies/mL (.); Immature Grans 0 % (Not Estab.); Lymphocytes 24 % (Not Estab.); MCHC 34.9 g/dL (31.5-35.7); MCV 83 fL (79-97); Monocytes 11 % (Not Estab.); Neutrophils 62 % (Not Estab.); Platelets 306 x10E3/uL (150-450); RBC 5.18 x10E6/uL (4.14-5.80); RDW 13.2 % (11.6-15.4); WBC 4.5 x10E3/uL (3.4-10.8)
== END ==
LOC: M PLALAB 13:04
PROVIDERS: ATTEND Internal Medicine Infectious Disease
DX: C61 Malignant neoplasm of prostate (principal)

== ENCOUNTER → 2022-09-21 | Outpatient (CLI) | payer OTHER ==
[~2022-09-21] MED LIST changes: +AMLO1TAB25 PO; +ATOR40TA75 PO; +ERGO500029 PO
== END ==
LOC: M LABSMTC 09:18
PROVIDERS: ATTEND Anesthesiology
DX: Z01.812 Encounter for preprocedural laboratory examination (principal); Z11.52 Encounter for screening for COVID-19

== ENCOUNTER 2022-09-24 09:05 | Day surgery (SDC) | payer OTHER ==
[~2022-09-24] VITALS: Ht 167.6 cm; Wt 67.1 kg
[~2022-09-24 09:05] MED LIST changes: +NS 1,000 ML IV ONE
[2022-09-24 12:09] VITALS: BP 139/79
[2022-09-24] MEDS ORDERED: propofoL 200 MG/20 ML VIAL As Ordered ONE (12:11)
== END 2022-09-24 12:50 | disposition home or self-care (01) ==
LOC: M OPP 09:05
PROVIDERS: ATTEND Internal Medicine Gastroenterology
DX: Z12.11 Encounter for screening for malignant neoplasm of colon (principal); Z86.010 Personal history of colon polyps; Z80.0 Family history of malignant neoplasm of digestive organs; K62.89 Other specified diseases of anus and rectum; K64.8 Other hemorrhoids; K57.30 Diverticulosis of large intestine without perforation or abscess without bleeding; I10 Essential (primary) hypertension; Z79.02 Long term (current) use of antithrombotics/antiplatelets; Z79.899 Other long term (current) drug therapy; Z88.1 Allergy status to other antibiotic agents; Z88.2 Allergy status to sulfonamides; Z85.46 Personal history of malignant neoplasm of prostate

== ENCOUNTER → 2023-01-14 | Outpatient (CLI) | payer OTHER ==
[~2023-01-14] MED LIST changes: -NS 1,000 ML IV ONE
[2023-01-14 14:46] LABS: ALBUMIN 4.1 G/DL (3.2-5.2); ALKALINE PHOSPHATASE 87 U/L (46-116); ALT/SGPT 30 U/L (7.0-40); AST/SGOT 26 U/L (<34); BILIRUBIN,TOTAL 1.2 MG/DL (0.3-1.2); BLOOD UREA NITROGEN 16 MG/DL (9-23); CALCIUM LEVEL 9.6 MG/DL (8.5-10.1); CARBON DIOXIDE LEVEL 29 MMOL/L (20-31); CHLORIDE LEVEL 105 MMOL/L (98-107); CHOLESTEROL LEVEL 210 MG/DL (<200); CREATININE FOR GFR 0.92 MG/DL (0.70-1.30); FREE T4 0.83 NG/DL (0.89-1.76); GLOMERULAR FILTRATION RATE > 60.0 (>56); GLUCOSE, FASTING 92 MG/DL (60-100); HDL CHOLESTEROL 77.5 MG/DL (>40); LDL CHOLESTEROL 97.9 MG/DL (<100); NON-HDL-C 132.5 MG/DL; POTASSIUM SERUM 4.4 MMOL/L (3.5-5.1); SODIUM LEVEL 141 MMOL/L (136-145); THYROID STIMULATING HORMONE 1.993 uIU/ML (0.55-4.78); TOTAL PROTEIN 7.2 G/DL (5.7-8.2); TRIGLYCERIDES LEVEL 173 MG/DL (<150)
[2023-01-16 00:10] LABS: % CD8 Pos Lymph 32.2 % (12.0-35.5); %CD4 Pos Lymphs 31.1 % (30.8-58.5); ABS Eosinophils 0.1 x10E3/uL (0.0-0.4); ABS Lymphs 1.2 x10E3/uL (0.7-3.1); ABS Monocytes 0.4 x10E3/uL (0.1-0.9); ABS Neutophils 3.2 x10E3/uL (1.4-7.0); Abs CD4 Helper 373 /uL (359-1519); Abs CD8 Suppres 386 /uL (109-897); CD4/CD8 Ratio 0.97 (0.92-3.72); Eosinophils 1 % (Not Estab.); HCT 45.6 % (37.5-51.0); HGB 16.2 g/dL (13.0-17.7); HIV-1 RNA PCR QUANT 2 LC550285 <20 copies/mL (.); Immature Grans 0 % (Not Estab.); Lymphocytes 25 % (Not Estab.); MCH 29.3 pg (26.6-33.0); MCHC 35.5 g/dL (31.5-35.7); MCV 83 fL (79-97); Monocytes 8 % (Not Estab.); Neutrophils 65 % (Not Estab.); Platelets 327 x10E3/uL (150-450); RBC 5.52 x10E6/uL (4.14-5.80); RDW 13.7 % (11.6-15.4)
== END ==
LOC: M PLALAB 10:57
PROVIDERS: ATTEND Internal Medicine Infectious Disease
DX: B20 Human immunodeficiency virus [HIV] disease (principal)

== ENCOUNTER → 2024-02-24 | Outpatient (CLI) | payer MEDICAID, OTHER ==
[2024-02-24 12:48] LABS: BASO % 0.4 % (0.0-1.0); EOS % 0.5 % (0.0-3.0); HEMATOCRIT 44.5 % (42.0-52.0); HEMOGLOBIN 15.3 g/dl (13.5-17.5); LYMPH # 1.2 10^3/uL (1.5-5.0); MEAN CORPUSCULAR HEMOGLOBIN 28.6 pg (27.0-33.0); MEAN CORPUSCULAR HGB CONC 34.4 g/dl (32.0-36.5); MEAN CORPUSCULAR VOLUME 83.2 fl (80.0-96.0); MONO # 0.6 10^3/uL (0.0-0.8); MONO % 7.6 % (2.0-8.0); NEUTROPHILS % 76.1 % (36.0-66.0); PLATELET COUNT, AUTOMATED 315 10^3/uL (150-450); RED BLOOD COUNT 5.35 10^6/uL (4.30-6.10); WHITE BLOOD COUNT 7.9 10^3/uL (4.0-10.0)
[2024-02-24 13:15] LABS: ALBUMIN 3.7 G/DL (3.2-5.2); ALKALINE PHOSPHATASE 75 U/L (46-116); ALT/SGPT 28 U/L (7.0-40); AST/SGOT 24 U/L (<34); BILIRUBIN,TOTAL 1.2 MG/DL (0.3-1.2); BLOOD UREA NITROGEN 21 MG/DL (9-23); CALCIUM LEVEL 9.7 MG/DL (8.5-10.1); CARBON DIOXIDE LEVEL 28 MMOL/L (20-31); CHLORIDE LEVEL 107 MMOL/L (98-107); CHOLESTEROL LEVEL 198 MG/DL (<200); CHOLESTEROL RISK RATIO 2.45 (<5); CREATININE FOR GFR 0.97 MG/DL (0.70-1.30); FREE T4 0.83 NG/DL (0.89-1.76); GLOMERULAR FILTRATION RATE > 60.0 (>56); GLUCOSE, FASTING 83 MG/DL (60-100); HDL CHOLESTEROL 80.6 MG/DL (>40); LDL CHOLESTEROL 98.6 MG/DL (<100); NON-HDL-C 117.4 MG/DL; POTASSIUM SERUM 4.4 MMOL/L (3.5-5.1); SODIUM LEVEL 143 MMOL/L (136-145); THYROID STIMULATING HORMONE 1.773 uIU/ML (0.55-4.78); TOTAL PROTEIN 6.9 G/DL (5.7-8.2); TRIGLYCERIDES LEVEL 94 MG/DL (<150)
[2024-02-24 13:16] LABS: TOTAL 25(OH) VITAMIN D 84.7 NG/ML (20.0-100.0)
[2024-02-24 14:00] LABS: GC DNA AMPLIFICATION NEGATIVE (NEGATIVE)
[2024-02-24 17:06] LABS: GC DNA AMPLIFICATION NEGATIVE (NEGATIVE)
[2024-02-24 17:07] LABS: GC DNA AMPLIFICATION NEGATIVE (NEGATIVE)
[2024-02-26 03:07] LABS: % CD8 Pos Lymph 34.2 % (12.0-35.5); %CD4 Pos Lymphs 33.4 % (30.8-58.5); ABS Lymphs 1.2 x10E3/uL (0.7-3.1); ABS Monocytes 0.5 x10E3/uL (0.1-0.9); ABS Neutophils 5.7 x10E3/uL (1.4-7.0); Abs CD4 Helper 401 /uL (359-1519); Abs CD8 Suppres 410 /uL (109-897); CD4/CD8 Ratio 0.98 (0.92-3.72); Eosinophils 0 % (Not Estab.); HCT 47.3 % (37.5-51.0); HGB 15.3 g/dL (13.0-17.7); HIV-1 RNA PCR QUANT 2 LC550285 <20 copies/mL (.); Immature Grans 0 % (Not Estab.); Lymphocytes 15 % (Not Estab.); MCH 27.5 pg (26.6-33.0); MCHC 32.3 g/dL (31.5-35.7); MCV 85 fL (79-97); Monocytes 7 % (Not Estab.); Neutrophils 78 % (Not Estab.); Platelets 339 x10E3/uL (150-450); RBC 5.56 x10E6/uL (4.14-5.80); RDW 13.1 % (11.6-15.4); WBC 7.5 x10E3/uL (3.4-10.8)
== END ==
LOC: M PLALAB 10:17
PROVIDERS: ATTEND Nurse Practitioner Family
DX: I10 Essential (primary) hypertension (principal); B20 Human immunodeficiency virus [HIV] disease; Z11.3 Encounter for screening for infections with a predominantly sexual mode of transmission; E78.2 Mixed hyperlipidemia; E55.9 Vitamin D deficiency, unspecified; E03.9 Hypothyroidism, unspecified

== ENCOUNTER → 2024-08-31 | Outpatient (CLI) | payer OTHER ==
[2024-08-31 10:16] LABS: BASO % 0.7 % (0.0-1.0); EOS # 0.1 10^3/uL (0.0-0.5); EOS % 1.4 % (0.0-3.0); HEMATOCRIT 43.8 % (42.0-52.0); HEMOGLOBIN 15.2 g/dl (13.5-17.5); LYMPH # 1.3 10^3/uL (1.5-5.0); LYMPH % 22.5 % (24.0-44.0); MEAN CORPUSCULAR HGB CONC 34.7 g/dl (32.0-36.5); MEAN CORPUSCULAR VOLUME 83.6 fl (80.0-96.0); MONO # 0.5 10^3/uL (0.0-0.8); MONO % 8.3 % (2.0-8.0); NEUTROPHILS # 3.9 10^3/uL (1.5-8.5); NEUTROPHILS % 66.8 % (36.0-66.0); PLATELET COUNT, AUTOMATED 353 10^3/uL (150-450); RED BLOOD COUNT 5.24 10^6/uL (4.30-6.10); WHITE BLOOD COUNT 5.8 10^3/uL (4.0-10.0)
[2024-08-31 10:38] LABS: ALKALINE PHOSPHATASE 73 U/L (40-129); ALT/SGPT 35 U/L (7.0-40); AST/SGOT 24 U/L (<34); BILIRUBIN,TOTAL 0.9 MG/DL (0.3-1.2); BLOOD UREA NITROGEN 17 MG/DL (9-23); CALCIUM LEVEL 10.1 MG/DL (8.5-10.1); CARBON DIOXIDE LEVEL 26 MMOL/L (20-31); CHLORIDE LEVEL 108 MMOL/L (98-107); CHOLESTEROL LEVEL 221 MG/DL (<200); CREATININE FOR GFR 0.94 MG/DL (0.70-1.30); GLOMERULAR FILTRATION RATE > 60.0 (>56); GLUCOSE, FASTING 73 MG/DL (60-100); HDL CHOLESTEROL 81.7 MG/DL (>40); LDL CHOLESTEROL 103.9 MG/DL (<100); NON-HDL-C 139.3 MG/DL; POTASSIUM SERUM 4.1 MMOL/L (3.5-5.1); PROSTATIC SPECIFIC AG MONITOR 0.04 NG/ML (< 4.00); SODIUM LEVEL 141 MMOL/L (136-145); TOTAL PROTEIN 7.6 G/DL (5.7-8.2); TRIGLYCERIDES LEVEL 177 MG/DL (<150)
[2024-08-31 10:40] LABS: FREE T4 0.98 NG/DL (0.89-1.76); THYROID STIMULATING HORMONE 2.122 uIU/ML (0.55-4.78)
[2024-09-01 13:07] LABS: % CD4+ LYMPHS 33.9 % (30.8-58.5); ABSOLUTE CD4 HELPER 407 /uL (359-1519); BASOPHILS 1 % (Not Estab.); EOSINOPHILS 2 % (Not Estab.); EOSINOPHILS ABSOLUTE 0.1 x10E3/uL (0.0-0.4); HCT 45.5 % (37.5-51.0); HGB 15.3 g/dL (13.0-17.7); LYMPHOCYTES 23 % (Not Estab.); LYMPHOCYTES ABSOLUTE 1.2 x10E3/uL (0.7-3.1); MCH 28.8 pg (26.6-33.0); MCHC 33.6 g/dL (31.5-35.7); MCV 86 fL (79-97); MONOCYTES 8 % (Not Estab.); MONOCYTES ABSOLUTE 0.4 x10E3/uL (0.1-0.9); NEUTROPHILS 66 % (Not Estab.); NEUTROPHILS ABSOLUTE 3.6 x10E3/uL (1.4-7.0); PLT 353 x10E3/uL (150-450); RBC 5.31 x10E6/uL (4.14-5.80); RDW 13.1 % (11.6-15.4); WBC 5.3 x10E3/uL (3.4-10.8)
[2024-09-01 16:10] LABS: VITAMIN D 1,25 DIHYDROXY 87.8 pg/mL (24.8-81.5)
[2024-09-04 13:27] LABS: HIV-1 RNA PCR QUANT 2 <20 DETECTED copies/mL (NOT DETECTED); HIV-1 RNA PCR QUANT 3 <1.30 DETECTED (NOT DETECTED)
== END ==
LOC: M PLALAB 08:52
PROVIDERS: ATTEND Internal Medicine Infectious Disease
DX: B20 Human immunodeficiency virus [HIV] disease (principal); I10 Essential (primary) hypertension; E55.9 Vitamin D deficiency, unspecified; E03.8 Other specified hypothyroidism; E78.2 Mixed hyperlipidemia; C61 Malignant neoplasm of prostate

== ENCOUNTER → 2025-08-16 | Outpatient (CLI) | payer OTHER ==
[~2025-08-16] MED LIST changes: +ACYC-438 PO; -ACYC1TAB PO; -IBUP1TAB6 PO; +SFHIBU600 PO
== END ==
LOC: M RAD 09:18
PROVIDERS: ATTEND Internal Medicine Infectious Disease
DX: I10 Essential (primary) hypertension (principal); Z53.9 Procedure and treatment not carried out, unspecified reason